=== PATIENT | female | born 1980 | race Caucasian/White ===

== ENCOUNTER 2019-08-23 07:21 | Outpatient (CLI) | payer OTHER ==
--- NOTE | 2019-08-23 08:07 | ULT ---
EXAM: Right lower extremity venous Doppler HISTORY: Right distal lower extremity pain. FINDINGS: Grayscale, color-flow, Doppler evaluation, spectral analysis of the right lower extremity venous stru ctures is performed with 2-D imaging. The right common femoral, superficial femoral, popliteal, posterior tibial, proximal greater saphenous and profunda femoral veins are imaged. There is normal luminal compressibility, flow, and augmentation in the visualized deep venous structu res of the right lower extremity. Images were obtained at site of patient's area of pain in the distal right lower extremity. No mass o r fluid collection is seen in this region. Imaging of the anterior tibial artery at this location demonstrates flow on color flow evaluation and spectral analysis. IMPRESSION: No evidence of a deep vein thrombosis in the visualized deep venous structures right lower extremity.
== END 2019-08-23 07:22 | disposition home or self-care (01) ==
LOC: ULT 07:21
PROVIDERS: ATTEND Nurse Practitioner Family
DX: R79.1 Abnormal coagulation profile (principal)